=== PATIENT | female | born 1940 | race Caucasian/White ===

== ENCOUNTER 2017-10-14 08:36 | Inpatient (IN) | payer OTHER, BC ==
[~2017-10-14] VITALS: Ht 162.6 cm; Wt 69.4 kg
[2017-10-14 08:38] VITALS: BP 214/99
[2017-10-14 09:09] LABS: ABSOLUTE NEUTROPHILS 7.6 thou/uL (1.4-8.2); BASOPHILS 0.6 % (0.0-2.0); EOSINOPHILS 0.7 % (0.0-3.0); HEMATOCRIT 39.6 % (37.0-47.0); HEMOGLOBIN 13.7 gm/dL (12.0-15.0); LYMPHOCYTES 14.2 % (24.0-44.0); MCH 33.5 pg (26.0-34.0); MCHC 34.5 g/dL (28.0-37.0); MONOCYTES 6.5 % (1.0-8.0); PLATELET COUNT 213 thou/uL (150-400); RBC 4.09 mil/uL (4.20-5.00); RDW 13.8 % (10.5-14.5); WBC 9.8 thou/uL (4.0-11.0)
[2017-10-14] MEDS ORDERED: XANAX 0.5 MG0.5 MG PO (09:15)
[2017-10-14] MEDS ORDERED: COZAAR 50 MG TA50 M2 PO (09:15)
[2017-10-14] MEDS ORDERED: ATORVASTATIN CA40 MG PO (09:16)
[2017-10-14] MEDS ORDERED: CHILDREN'S ASPI81 M1 PO (09:18)
[2017-10-14] MEDS ORDERED: NEURONTIN 300300 M1 PO (09:18)
[2017-10-14] MEDS ORDERED: OMEPRAZOLE 20 M20 M1 PO (09:18)
[2017-10-14 09:30] LABS: CALCIUM 8.9 mg/dL (8.5-10.1); CREATININE 1.1 mg/dL (0.6-1.0); POTASSIUM 4.7 mmol/L (3.5-5.1)
[2017-10-14 09:37] LABS: ALBUMIN 3.9 g/dL (3.4-5.0); DIRECT BILIRUBIN 0.2 mg/dL (<0.1-0.3); TOTAL BILIRUBIN 0.6 mg/dL (<0.1-1.0); TOTAL PROTEIN 7.8 g/dL (6.4-8.2)
[2017-10-14 10:01] LABS: URINE BILIRUBIN NEGATIVE (Negative); URINE BLOOD 3+ (Negative); URINE CLARITY CLEAR; URINE COLOR YELLOW; URINE GLUCOSE-RANDOM* NEGATIVE (Negative); URINE KETONES NEGATIVE (Negative); URINE LEUKOCYTES NEGATIVE (Negative); URINE NITRITE NEGATIVE (Negative); URINE PROTEIN (DIPSTICK) TRACE (Negative); URINE UROBILINOGEN 0.2 E.U./dl (0.2-1.0)
[2017-10-14 10:17] LABS: CASTS None Seen /LPF (None Seen); SQUAMOUS 0-3 Few /LPF (0-3)
[2017-10-14 10:18] LABS: CRYSTALS None Seen /LPF (None Seen); URINE WBC 0-5 Rare /HPF (0-5)
[2017-10-14 10:19] LABS: BACTERIA 1-9 Few /HPF (None Seen)
[2017-10-14] MEDS ORDERED: FOLBIC RF TABL1 EACH PO (10:40)
[2017-10-14 12:25] VITALS: BP 155/73
[2017-10-14 18:07] VITALS: BP 155/73
[2017-10-14 20:17] VITALS: BP 152/69
[2017-10-15] VITALS (7 sets, daily range): BP systolic 124–148; BP diastolic 59–75
[2017-10-15 03:50] LABS: HEMATOCRIT 38.5 % (37.0-47.0); HEMOGLOBIN 13.2 gm/dL (12.0-15.0); MCH 33.3 pg (26.0-34.0); MCHC 34.3 g/dL (28.0-37.0); MCV 97.1 fL (80.0-100.0); RBC 3.96 mil/uL (4.20-5.00); RDW 13.7 % (10.5-14.5); WBC 8.6 thou/uL (4.0-11.0)
[2017-10-15 04:09] LABS: CREATININE 0.8 mg/dL (0.6-1.0); POTASSIUM 4.1 mmol/L (3.5-5.1)
[2017-10-15] MEDS ORDERED: FLOMAX0.4 MG PO (09:42)
[2017-10-15] MEDS ORDERED: HYDROCODON-ACE1 EAC7 PO (09:43)
== END 2017-10-15 13:41 | disposition home or self-care (01) | DRG 694 ==
LOC: ER 08:36 → EROBS 11:25 → 4E 12:27
PROVIDERS: Emergency Medicine; Hospitalist
DX: N13.2 Hydronephrosis with renal and ureteral calculous obstruction (principal); N13.4 Hydroureter; I10 Essential (primary) hypertension; E11.65 Type 2 diabetes mellitus with hyperglycemia; E78.5 Hyperlipidemia, unspecified; Z91.041 Radiographic dye allergy status; Z79.899 Other long term (current) drug therapy
CPT/HCPCS: 10084

== ENCOUNTER → 2018-03-22 | Outpatient (CLI) | payer OTHER, BC ==
[~2018-03-22] MED LIST: ATORVASTATIN CA40 MG PO; CHILDREN'S ASPI81 M1 PO; COZAAR 50 MG TA50 M2 PO; FIBER LAXATIVE500 MG PO; FLOMAX0.4 MG PO; FOLBIC RF TABL1 EACH PO; HYDROCODON-ACE1 EAC7 PO; NEURONTIN 300300 M1 PO; OMEPRAZOLE 20 M20 M1 PO; XANAX 0.5 MG0.5 MG PO
--- NOTE | ~2018-03-22 | EKG ---
[place] [address] [address] [place] [address] ELECTROCARDIOGRAM REPORT Name: CLEMENTE CHRISTOPHER Room #: REG CLI [facility]#: [id number] Admission: 03/22/18 Attend Phys: Wisam Jackson MD Discharge: Date of : 42 Report #: [id number] THIS REPORT FOR: //name// [facility] Test Date: 2018-03-22 Test Time: 09:46:22 Pat Name: CLEMENTE CHRISTOPHER Department: Room: Gender: F [employer] Adviser: ermias : 1940 Requested By: Wisam Jackson Order Number: [id number] MD: Carlos Carlson Measurements Intervals Neal Rate: 76 P: -10 FL: 176 QRS: -25 QRSD: 90 T: 7 QT: 396 QTc: 446 Interpretive Statements Sinus rhythm Abnormal R-wave progression, early transition No previous ECG available for comparison Electronically Signed On 03-22-2018 17:14:59 CDT by Carlos Carlson [email or web address] <ELECTRONICALLY SIGNED> By: Carlos Carlson MD, [facility] 03/22/18 1714 0946 0946 Carlos Carlson MD, FACC /EPI
== END | disposition home or self-care (01) ==
LOC: LITH 09:25
DX: N20.0 Calculus of kidney (principal); E11.9 Type 2 diabetes mellitus without complications; M10.9 Gout, unspecified; G30.9 Alzheimer's disease, unspecified; G62.9 Polyneuropathy, unspecified; Z87.19 Personal history of other diseases of the digestive system; Z98.890 Other specified postprocedural states; Z85.828 Personal history of other malignant neoplasm of skin; Z91.041 Radiographic dye allergy status; Z79.82 Long term (current) use of aspirin; Z79.899 Other long term (current) drug therapy